=== PATIENT | female | born 1990 | race Caucasian/White ===

== ENCOUNTER 2019-05-05 06:18 | Inpatient (IN) ==
[2019-05-05] MEDS ORDERED: D5LR 1L W PITOCIN 10 UNITS/L 10 UNITS/1,000 ML BAG IV ONE (06:24)
[2019-05-05] MEDS ORDERED: D5 1/2 NS 1000 ML 1,000 ML IV ONE (06:24)
[2019-05-05] MEDS ORDERED: REGLAN INJ 10 MG VIAL IVP PRN (06:35)
[2019-05-05] MEDS ORDERED: PITOCIN IVP ONE (06:35)
[2019-05-05] MEDS ORDERED: D5LR 1L W PITOCIN 10 UNITS/L 10 UNITS/1,000 ML BAG IV PRN (06:35)
[2019-05-05] MEDS ORDERED: MORPHINE SULFATE INJ 2 MG INJ IVP PRN (06:35)
[2019-05-05] MEDS ORDERED: NUBAIN INJ 200 MG VIAL MULTIDOSE IVP PRN (06:35)
[2019-05-05] MEDS ORDERED: PHENERGAN INJ 25 MG IM PRN ×2 (06:35→18:11)
[2019-05-05 07:15] LABS: URIC ACID 3.8 mg/dL (2.6-6.0)
--- NOTE | 2019-05-05 07:20 | DR.OB ---
OB Quick Note - Assessment/Plan Assessment/Plan: L&D 05/05/19 at 6:55am S-No complaint. O-Afebrile,VSS [id number] with good LTV, +accel, no decel. CTX=irregular,mild CVX=1cm/75%/-1/VTX AROM with clear fluid. IUPC and FSE placed. A-IUP at 38 6/7 weeks for induction PIH Hypothyroid P-Begin pitocin induction F/U preeclamptic labs Anticipate
[2019-05-05] MEDS: D5 1/2 NS 1000 ML 1,000 ML IV SCH ×2 (10:21→14:42)
[2019-05-05] MEDS ORDERED: LR 1000 ML IV 1,000 ML IV ONE (11:00)
--- NOTE | 2019-05-05 11:26 | DR.OB ---
OB Quick Note - Assessment/Plan Assessment/Plan: L&D 05/05/19 at 11:20am Pitocin=10mu/min. S-No complaint. O-Afebrile,VSS [id number] with good LTV, +accel, no decel. CTX=1 1/2 to 2 min., about 55-65mmHg CVX=3cm/75%/-1 A-IUP at 38 6/7 weeks for induction PIH Hypothyroidism P-Cont. pitocin induction Anticipate
[2019-05-05] MEDS ORDERED: FENTANYL INJ 100 mcg ONE (11:42)
[2019-05-05] MEDS ORDERED: NAROPIN EPIDURAL 0.2% + FENTANYL 90MCG 60 ML EPI ONE (11:43)
[2019-05-05] MEDS ORDERED: PITOCIN ONE (15:52)
[2019-05-05] MEDS ORDERED: D5 1/2 NS 1L W PITOCIN 20 UNITS/L 20 UNITS/1,000 ML BAG IV ONE (15:52)
--- NOTE | 2019-05-05 18:11 | DR.OB ---
OB Quick Note - Assessment/Plan Assessment/Plan: Delivery Note [employer]PER[employer]ENT [employer]SMISSION 05/05/19 at 5:51pm Patient complete and pushing. Head delivered over intact perineum. No nuchal cord. Nose and mouth bulb suctioned. Body delivered over intact perineum. Cord clamped x 2 and cut. Infant handed to attendant. Cord sent for gases. Placenta delivered spontaneously / intact / 3 vessel cord. No CVX tears. A second degree midline tear noted and repaired with 0-vicryl in usual fashion. Viable male , VTX/OA, wt=7'3" and 9/9, stable to NBN. Mother stable to RR. AMV=[id number].
[2019-05-05] MEDS ORDERED: AMBIEN PO PRN (19:27)
[2019-05-05] MEDS ORDERED: DERMOPLAST SPRAY TOP PRN (19:27)
[2019-05-05] MEDS ORDERED: TYLENOL #3 TAB (W/CODEINE) PO PRN (19:27)
[2019-05-05] MEDS ORDERED: MILK OF MAGNESIA PO PRN (19:27)
[2019-05-05] MEDS ORDERED: ADACEL or BOOSTRIX TDaP VACCINE IM ONE (19:27)
[2019-05-05] MEDS: D5 1/2 NS 1000 ML 1,000 ML with PITOCIN 20 UNITS IV SCH ×2 (20:27)
[2019-05-05] MEDS: REGLAN TAB 10 MG PO SCH (21:45)
[2019-05-05] MEDS: MOTRIN TAB 800 MG PO PRN (23:37)
[2019-05-06 04:06] LABS: HEMOGLOBIN 10.4 g/dL (12.0-16.0)
[2019-05-06] MEDS: D5 1/2 NS 1000 ML 1,000 ML with PITOCIN 20 UNITS IV SCH ×6 (04:42→20:01)
[2019-05-06] MEDS ORDERED: ADACEL or BOOSTRIX TDaP VACCINE IM ONE (05:47)
[2019-05-06] MEDS: REGLAN TAB 10 MG PO SCH ×4 (06:00→21:01)
[2019-05-06] MEDS: PRENATAL PLUS PO SCH (08:54)
[2019-05-06] MEDS: PROTONIX TAB 40 MG PO SCH (08:54)
[2019-05-06] MEDS: MOTRIN TAB 800 MG PO PRN (13:54)
[2019-05-06] MEDS: SYNTHROID 75 mcg TAB PO SCH (16:24)
[2019-05-07] MEDS: REGLAN TAB 10 MG PO SCH ×3 (06:26→16:20)
[2019-05-07] MEDS: MOTRIN TAB 800 MG PO PRN (07:15)
[2019-05-07] MEDS: PRENATAL PLUS PO SCH (08:58)
[2019-05-07] MEDS: PROTONIX TAB 40 MG PO SCH (08:58)
[2019-05-07] MEDS: SYNTHROID 75 mcg TAB PO SCH (16:20)
[2019-05-07 18:07] VITALS: BP 153/97
== END 2019-05-07 18:05 | disposition home or self-care (01) | DRG 807 ==
LOC: LD 06:18 → MED/SURG 19:44
PROVIDERS: ADMIT Specialist; ATTEND Specialist
DX: Z3A.38 38 weeks gestation of pregnancy; O13.3 Gestational [pregnancy-induced] hypertension without significant proteinuria, third trimester; O99.283 Endocrine, nutritional and metabolic diseases complicating pregnancy, third trimester; O99.613 Diseases of the digestive system complicating pregnancy, third trimester; Z23 Encounter for immunization; Z37.0 Single live birth; O26.899 Other specified pregnancy related conditions, unspecified trimester; O70.1 Second degree perineal laceration during delivery
CPT/HCPCS: 36415; 59409; 83615; 84450; 84460; 84550; 85014; 85018; 85384; 85610; 85730; 90715; A4216; A4222; S0197; J2590; J3010; J7120; S5010

== ENCOUNTER 2022-06-04 06:29 | Inpatient (IN) ==
[2022-06-04] MEDS ORDERED: D5 1/2 NS 1,000 ML 1,000 ML IV ONE (06:38)
[2022-06-04] MEDS ORDERED: BETADINE SOLN ONE (06:38)
[2022-06-04] MEDS ORDERED: PITOCIN ONE (06:38)
[2022-06-04] MEDS ORDERED: D5 LR + PITOCIN 10 UNITS/L 10 UNITS/1,000 ML BAG IV ONE (06:40)
[2022-06-04] MEDS ORDERED: D5 1/2 NS 1,000 mL + PITOCIN 20 UNITS/L IV 20 UNITS/1,000 ML BAG IV ONE (06:40)
--- NOTE | 2022-06-04 07:18 | DR.OB ---
OB Quick Note - Assessment/Plan Assessment/Plan: L&D 06/04/22 at 6:55am S-No complaint. O-Afebrile,VSS [id number] with good LTV, +accel, no decel. CTX=none CVX=2cm/50%/-1/VTX AROM with clear fluid. IUPC and FSE placed. A-IUP at 38 2/7 weeks for induction PIH +GBS P-Begin pitocin induction F/U preeclamptic labs IV ABX in labor for +GBS Anticipate
[2022-06-04] MEDS ORDERED: PHENERGAN INJ 25 MG IM PRN ×2 (07:40→14:28)
[2022-06-04] MEDS ORDERED: AMPICILLIN VIAL 2 GRAM 2 G in NS 100 ML IV 100 ML IV SCH (07:40)
[2022-06-04] MEDS ORDERED: NUBAIN INJ 20 MG AMP IVP PRN (07:40)
[2022-06-04] MEDS ORDERED: MORPHINE SULFATE INJ 2 MG INJ IVP PRN (07:40)
[2022-06-04] MEDS ORDERED: PITOCIN IVP ONE (07:40)
[2022-06-04] MEDS ORDERED: D5 1/2 NS 1,000 ML 1,000 ML IV SCH (07:40)
[2022-06-04] MEDS ORDERED: REGLAN INJ 10 MG VIAL IVP PRN (07:40)
[2022-06-04] MEDS ORDERED: AMPICILLIN VIAL 1 GRAM 1 G in NS 50 ML IV + SPIKE MINIBAG* 50 ML IV SCH (07:40)
[2022-06-04] MEDS ORDERED: D5 LR + PITOCIN 10 UNITS/L 10 UNITS/1,000 ML BAG IV PRN (07:40)
[2022-06-04] MEDS ORDERED: AMPICILLIN VIAL 2 GRAM ONE (07:49)
[2022-06-04] MEDS ORDERED: NS 100 ML IV 100 ML ONE ×2 (07:49→12:32)
[2022-06-04 08:06] LABS: INR 1.01 (0.8-1.3)
[2022-06-04 08:10] LABS: URIC ACID 4.3 mg/dL (2.6-6.0)
[2022-06-04] MEDS ORDERED: LR 1,000 ML IV 1,000 ML IV ONE (10:38)
[2022-06-04] MEDS ORDERED: FENTANYL VIAL INJ 100 mcg ONE (10:45)
[2022-06-04] MEDS ORDERED: NAROPIN EPIDURAL 0.2% 100 ML ONE (10:46)
[2022-06-04] MEDS ORDERED: EPHEDRINE SULFATE INJ ONE (11:13)
[2022-06-04] MEDS ORDERED: AMPICILLIN VIAL 1 GRAM 1 G in NS 50 ML IV 50 ML IV SCH (12:00)
[2022-06-04] MEDS ORDERED: AMPICILLIN VIAL 1 GRAM ONE (12:32)
[2022-06-04] MEDS ORDERED: MOTRIN TAB 800 MG PO PRN (14:28)
[2022-06-04] MEDS: D5 1/2 NS 1,000 ML 1,000 ML with PITOCIN 20 UNITS IV SCH ×2 (15:00)
[2022-06-04] MEDS ORDERED: MILK OF MAGNESIA PO PRN (15:24)
[2022-06-04] MEDS ORDERED: AMBIEN PO PRN (15:24)
[2022-06-04] MEDS ORDERED: ADACEL or BOOSTRIX TDaP VACCINE IM ONE ×2 (15:24→20:26)
[2022-06-04] MEDS ORDERED: DERMOPLAST PAIN RELIEF SPRAY TOP PRN (15:24)
--- NOTE | 2022-06-04 15:50 | DR.OB ---
OB Quick Note - Assessment/Plan Assessment/Plan: Delivery Note [employer] 06/04/22 at 2:20pm Patient complete and pushing. Head delivered over intact perineum. Nuchal cord x 1 reduced. Nose and mouth bulb suctioned. Body delivered over intact perineum. Cord clamped x 2 and cut. Infant handed to attendant. Cord sent for gases. Placenta delivered spontaneously / intact / 3 vessel cord. No CVX / vaginal / perineal tears. Viable female infant, , VTX/OA, wt=6'2" and 9/9, stable to NBN. Mother stable to RR. DHU=[id number].
[2022-06-05] MEDS: D5 1/2 NS 1,000 ML 1,000 ML with PITOCIN 20 UNITS IV SCH ×4 (00:35→06:29)
[2022-06-05 04:54] LABS: HEMATOCRIT 33.9 % (36.0-47.0); HEMOGLOBIN 11.3 g/dL (12.0-16.0)
[2022-06-05] MEDS: VSL#3 PO SCH ×2 (05:36→09:32)
[2022-06-05] MEDS ORDERED: PRENATAL PLUS PO SCH (09:00)
[2022-06-05] MEDS ORDERED: PROTONIX TAB 40 MG PO SCH (09:00)
[2022-06-05 14:01] VITALS: BP 126/78
== END 2022-06-05 16:50 | disposition home or self-care (01) | DRG 807 ==
LOC: LD 06:29 → MED/SURG 15:47
PROVIDERS: ADMIT Specialist; ATTEND Specialist
DX: Z37.0 Single live birth; O75.89 Other specified complications of labor and delivery; K21.9 Gastro-esophageal reflux disease without esophagitis; Z3A.38 38 weeks gestation of pregnancy; O13.4 Gestational [pregnancy-induced] hypertension without significant proteinuria, complicating childbirth